=== PATIENT | male | born 1975 | race African-American/Black ===

== ENCOUNTER 2019-05-14 14:20 | Emergency (ER) | payer SELFPAY ==
[~2019-05-14] VITALS: Ht 188 cm; Wt 96.0 kg
[2019-05-14] MEDS ORDERED: LIDOCAINE HCL 1% 20ML VIAL (Pyxis) INJ INFIL ONE (15:00)
[2019-05-14 16:10] VITALS: BP 119/89
== END 2019-05-14 16:10 | disposition home or self-care (01) ==
LOC: ER 14:20
DX: L84 Corns and callosities (principal); F17.200 Nicotine dependence, unspecified, uncomplicated
CPT/HCPCS: 99282; J3490